=== PATIENT | female | born 1995 | race American Indian/Alaskan Native ===

== ENCOUNTER 2021-02-18 03:17 | Outpatient (CLI) | payer OTHER ==
[2021-02-18 03:34] VITALS: BP 126/64
[2021-02-18] MEDS ORDERED: LACTATED RINGERS 1,000 ML IV ONE (03:45)
[2021-02-18] MEDS ORDERED: LACTATED RINGERS 1,000 ML ONE (03:48)
[2021-02-18] MEDS ORDERED: TERBUTALINE 1 MG/1 ML INJ SUB-Q ONE ×2 (04:05→04:55)
== END 2021-02-18 05:50 | disposition home or self-care (01) ==
LOC: TRG 03:17 → APU 03:19 → TRG 05:50
PROVIDERS: ATTEND Obstetrics & Gynecology
DX: O62.9 Abnormality of forces of labor, unspecified (principal); Z3A.36 36 weeks gestation of pregnancy
CPT/HCPCS: 59025; 96372; J3105; J7120; 96360

== ENCOUNTER 2021-02-22 00:13 | Inpatient (IN) | payer OTHER ==
[2021-02-22] MEDS ORDERED: LACTATED RINGERS 1,000 ML IV ONE (00:29)
[2021-02-22] MEDS ORDERED: OXYTOCIN DRIP 30,000 MILLIUNITS/500 ML BAG IV ONE (01:46)
[2021-02-22] MEDS ORDERED: BICITRA ORAL LIQD 30ML ONE (01:46)
[2021-02-22] MEDS ORDERED: METOCLOPRAMIDE 10 MG/2 ML INJ ONE (01:46)
[2021-02-22] MEDS ORDERED: FAMOTIDINE 20 MG/2 ML INJ IV ONE ×2 (01:47→01:52)
[2021-02-22] MEDS ORDERED: BICITRA ORAL LIQD 30ML PO ONE (01:52)
[2021-02-22] MEDS ORDERED: METOCLOPRAMIDE 10 MG/2 ML INJ IV ONE (01:52)
--- NOTE | 2021-02-22 01:58 | Ultrasound Report ---
LIMITED OBSTETRICAL ULTRASOUND HISTORY: Evaluate DIANELYS. FINDINGS: DIANELYS is at the lower limits of normal measuring 7.7 cm. A single viable intrauterine has heart tones of 147 bpm. position is cephalic. IMPRESSION: Amniotic fluid index of 7.7 cm. Signer Name: Aramis Miranda MD Signed: 02/22/2021 1:54 AM Workstation Name: [id number]
[2021-02-22] MEDS ORDERED: OXYTOCIN DRIP 30 UNITS/500 ML BAG IV SCH ×2 (02:00→06:29)
[2021-02-22] MEDS ORDERED: LACTATED RINGERS 1,000 ML IV SCH (02:00)
[2021-02-22] MEDS ORDERED: ceFAZolin/Water 2 GM/20 ML 2 GM/20 ML SYRINGE IV NR (02:00)
--- NOTE | 2021-02-22 02:05 | History and Physical Report ---
<VINCE NARANJO Olegario - Last Filed: 02/22/21 02:01> History of Present Illness Date of examination: 02/22/21 Chief complaint: labor History of present illness: EDC by 2nd trimester u/s 03/02/2021 Past History : 2 Term Births: 1 Premature Births: 0 Living Children: 1 Para: 1 Mult. Births: 0 Prev : 1 Aborta: 0 Elect. Ab: 0 Spont. 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 of genital herpes: no Partner hx. of genital herpes: no Rash, Viral, or Febrile illness since last LMP? no Varicella/Chicken Pox Status: Immunized Genetic History Congenital Heart Defect: Mom: no Dad: no Martina Disease: Mom: no Dad: no Thalassemia Mom: no Dad: no Neural Tube Defect Mom: no Dad: no Down's Syndrome Mom: no Dad: no Estuardo-Sachs Mom: no Dad: no Sickle Cell Disease/Trait Mom: no Dad: no Hemophilia Mom: no Dad: no Muscular Dystrophy Mom: no Dad: no Cystic Fibrosis Mom: no Dad: no [place] Chorea Mom: no Dad: no Mental Retardation Mom: no Dad: no Fragile X Mom: no Dad: no Other Genetic/Chromosomal Disorder Mom: no Dad: no Child w/other defect Mom: no Dad: no Enviromental Exposures Xray Exposure: no Medication, drug, or alcohol use since LMP: no Chemical/Other Exposure: no Exposure to Cat Liter: no Hx of Parvovirus (Fifth Disease): no Occupational Exposure to Children: none Current Allergies (reviewed today): No known allergies Past History Past Medical History: other (fibroids) Past Surgical History: section (2016) 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: abnormal PAP smear (ASCUS + HRHPV) Social history: other (THC use) - Obstetrical History Expected Date of Delivery: 03/02/21 Actual Gestation: 38 Week(s) 6 Day(s) : 2 Para: 1 Hx # Term Pregnancies: 1 Number of Pregnancies: 0 Spontaneous Abortions: 0 Induced : 0 Number of Living Children: 1 Medications and Allergies Allergies Allergy/AdvReac Type Severity Reaction Status Date / Time No Known Allergies Allergy Unverified 02/18/21 03:45 Home Medications Medication Instructions Recorded Confirmed Last Taken Type No Known Home Medications [No 02/22/21 02/22/21 Unknown History Reported Home Medications] Active Meds: Active Medications Lactated Ringer's (Lactated Ringers) 1,000 mls @ 2,250 mls/hr IV PREOP KEMI Stop: 02/23/21 02:27 Oxytocin/Sodium Chloride (Pitocin/Ns 30 Unit/500ml) 30 units in 500 mls @ 0 mls/hr IV TITR KEMI; Protocol Cefazolin Sodium (Ancef/Sterile Water 2 Gm/20 Ml) 2 gm in 20 mls @ 80 mls/hr IV PREOP NR; Protocol Stop: 02/22/21 02:14 - Vital Signs Vital signs: Vital Signs Pulse BP 85 129/80 02/22/21 00:26 02/22/21 00:26 Temp Pulse Resp BP Pulse Ox 98.3 F 85 129/82 02/22/21 00:47 02/22/21 00:26 02/22/21 00:47 Results All other labs normal. Assessment and Plan - Patient Problems (1) 38 weeks gestation of Current Visit: Yes Status: Acute (2) Previous section Current Visit: Yes Status: Acute (3) Anemia Current Visit: Yes Status: Acute (4) Insufficient care Current Visit: Yes Status: Acute <GUZMAN VEGA - Last Filed: 02/22/21 02:48> History of Present Illness Date of admission: 02/22/21 00:29 Medications and Allergies Active Meds: Active Medications Lactated Ringer's (Lactated Ringers) 1,000 mls @ 2,250 mls/hr IV PREOP KEMI Stop: 02/23/21 02:27 Last Admin: 02/22/21 02:22 Dose: 2,250 mls/hr Documented by: Oxytocin/Sodium Chloride (Pitocin/Ns 30 Unit/500ml) 30 units in 500 mls @ 0 mls/hr IV TITR KEMI; Protocol Review of Systems All systems: negative Genitourinary: contractions - Vital Signs Vital signs: Vital Signs Pulse BP 85 129/80 02/22/21 00:26 02/22/21 00:26 Temp Pulse Resp BP Pulse Ox 98.3 F 85 129/82 02/22/21 00:47 02/22/21 00:26 02/22/21 00:47 - Physical Exam Breasts: Positive: deferred Cardiovascular: Regular rate Lungs: Positive: Normal air movement Uterus: Positive: enlarged - Obstetrical FHR: category 1 Uterine Contraction Monitor Mode: External Uterine Contraction Pattern: Irregular Results Result Diagrams: 02/22/21 01:50 Abnormal lab results 02/22/21 Range/Units 01:50 Hgb 8.7 L (10.1-14.3) gm/dl Hct 28.0 L (30.3-42.9) % MCV 71 L (79-97) fl MCH 22 L (28-32) pg RDW 18.5 H (13.2-15.2) % Real % (Auto) 8.8 H (0.0-7.3) % Real # (Auto) 0.9 H (0.0-0.8) K/mm3 Seg Neutrophils % 72.7 H (40.0-70.0) % All other labs normal. Assessment and Plan - Patient Problems (1) 38 weeks gestation of Current Visit: Yes Status: Acute (2) Anemia Current Visit: Yes Status: Chronic (3) Insufficient care Current Visit: Yes Status: Acute (4) Previous section Current Visit: Yes Status: Acute Plan to address problem: Risk associated with delivery were discussed, including but not limited to, bleeding that may require blood transfusion, infection that may be life threatening, injury to adjacent organs specifically bowel or bladder that may require further surgeries, or major vascular injury. She was also informed that when she has had a delivery she may require repeat deliveries for all subsequent pregnancies. Questions were encouraged and answered, consents were reviewed and signed. Patient voiced understanding and desires to proceed with delivery. Patient was given consent to review prior to my arrival but signed consent while being prepped for c/s because repeat c/s was discussed in our office earlier in her she desired repeat c/s. (5) Active labor at term Current Visit: Yes Status: Acute
[2021-02-22 02:25] LABS: Basophils % (Auto) 0.2 % (0.0-1.8); Eosinophils % (Auto) 0.2 % (0.0-4.3); Hemoglobin 8.7 gm/dl (10.1-14.3); Lymphocytes # (Auto) 1.9 K/mm3 (1.2-5.4); Lymphocytes % (Auto) 18.1 % (13.4-35.0); Mean Corpuscular HGB Conc 31 % (30-34); Mean Corpuscular Volume 71 fl (79-97); Monocytes # (Auto) 0.9 K/mm3 (0.0-0.8); Monocytes % (Auto) 8.8 % (0.0-7.3); Platelet Count 377 K/mm3 (140-440); Red Blood Count 3.93 M/mm3 (3.65-5.03); Red Cell Distribution Width 18.5 % (13.2-15.2)
--- NOTE | 2021-02-22 02:33 | Anesthesia Day of Surgery ---
Anesthesia Day of Surgery - Day of Surgery Patient Examined: Yes Patient H&P Reviewed: Yes Patient is NPO: No (6 hours)
--- NOTE | 2021-02-22 02:33 | Anesthesia Consultation ---
Anesthesia Consult and Med Hx Date of service: 02/22/21 - Airway Anesthetic Teeth Evaluation: Poor ROM Head & Neck: Adequate Mental/Hyoid Distance: Adequate Mallampati Class: Class II Intubation Access Assessment: Probably Good - Pulmonary Exam CTA: Yes - Cardiac Exam Cardiac Exam: RRR - Pre-Operative Health Status ASA Pre-Surgery Classification: ASA2, Emergency Proposed Anesthetic Plan: Spinal - Pulmonary Hx Asthma: No COPD: No Hx Pneumonia: No - Cardiovascular System Hx Hypertension: No - Central Nervous System Hx Seizures: No Hx Psychiatric Problems: No - Endocrine Hx Renal Disease: No Hx End Stage Renal Disease: No Hx Hypothyroidism: No Hx Hyperthyroidism: No - Hematic Hx Anemia: Yes (2015) Hx Sickle Cell Disease: No - Other Systems Hx Alcohol Use: No
[2021-02-22] MEDS ORDERED: CARBOPROST TROMETHAMINE 250 MCG/1 ML INJ IM PRN (02:50)
[2021-02-22] MEDS ORDERED: miSOPROStol 200 MCG TAB PR PRN (02:50)
[2021-02-22] MEDS ORDERED: METHYLERGONOVINE MALEATE 0.2 MG/ML VIAL IM PRN (02:50)
[2021-02-22] MEDS ORDERED: DIPHENOXYLATE/ATROPINE TAB PO PRN (02:52)
[2021-02-22] MEDS ORDERED: METHYLERGONOVINE MALEATE 0.2 MG/ML VIAL IM ONE (02:53)
[2021-02-22] MEDS ORDERED: miSOPROStol 200 MCG TAB ONE (02:53)
[2021-02-22] MEDS ORDERED: ceFAZolin 1 GM VIAL IV ONE (02:58)
[2021-02-22] MEDS ORDERED: SODIUM CHLORIDE 0.9% IRR 1,500 ML BOTTLE IR ONE (02:58)
[2021-02-22] MEDS ORDERED: WATER FOR IRRIG STERILE 1,500 ML BOTTLE IR ONE (02:58)
[2021-02-22] MEDS ORDERED: BUPIVACAINE/PF (0.5%) 5 MG/1 ML 30 ML VIAL INFILTRATI ONE (03:11)
[2021-02-22] MEDS ORDERED: KETOROLAC 30 MG/1 ML INJ ONE (03:11)
[2021-02-22] MEDS ORDERED: ONDANSETRON 4 MG/2 ML INJ ONE (03:11)
[2021-02-22] MEDS ORDERED: dexAMETHasone 20 MG/5 ML VIAL ONE (03:12)
--- NOTE | 2021-02-22 03:52 | Progress Note ---
Spinal Anesthesia Block - Spinal Anesthesia Block Start Time: 02:39 Stop Time: 02:41 Performed by:: NEYDA ROCK Procedure: Sitting, sterile chlorahexadine 0.5% prep/drape, 1% lidocaine skin local, 25G spinal needle + introducer at L3-4, + CSF, - Heme, [1.9 ml 0.5% bupivacaine + 10 mcg dexmedetomidine] injected, drape removed, patient positioned supine with left uterine displacement, and spinal level verified to be adequate prior to surgery.
--- NOTE | 2021-02-22 03:53 | Progress Note ---
Regional Anesthesia Block - Regional Anesthesia Block Start Time: 03:45 Stop Time: 03:50 Performed By:: NEYDA ROCK Procedure: U/S guided bilateral tap block performed for post-operative pain requested by Dr. Jones. H&P & labs reviewed. Procedure explained, questions answered, consent obtained. Patient in the supine position with ekg, blood pressure cuff and pulse ox on and working in PACU. Timeout performed immediately before start of procedure. Probe placed in the mid-axillary line and the external oblique, internal oblique, and transverse abdominus muscles identified. Skin was cleansed with chlorahexadine 0.5% and allowed to dry. A 4" 20 G Shin echogenic needle was advanced in plane until the tip was in the fascial plane between the internal oblique and the transverse abdominus. After negative aspiration 35 ml/side of [30 ml 0.5% Bupivacaine], [10 mg dexamethasone], and [40 ml sterile saline] was injected in 5 ml increments with negative aspiration in between. Patient tolerated procedure well.
--- NOTE | 2021-02-22 04:01 | Operative Report ---
Operative Report Operative Report: Date of operation: 02/22/2021 Pre-operative diagnosis: 1. 38 weeks gestational age 2. Active labor 3. Previous delivery desires repeat delivery 4. BMI 28.3 kg/m 5. Insufficient care 6. Uterine fibroids Post-operative diagnosis: 1. 38 weeks gestational age 2. Active labor 3. Previous delivery desires repeat delivery 4. BMI 28.3 kg/m 5. Insufficient care 6. Uterine fibroids 7. Thin lower uterine segment 8. Thick meconium stained amniotic fluid 9. Pelvic adhesions Procedure name(s): Primary low transverse uterine incision with lysis of pelvic adhesions Surgeon: Flower Jones MD Cloth Finishing Range Back Tender: Varsha Nagy Anesthesia: Combined spinal epidural EBL: 500 mL Urine output: 25 mL of clear urine out at the end of the procedure Fluids: 500 mL Findings: Liveborn female infant weight 5 Lbs. 13 oz. Apgars of 8 and 9 at one and 5 minutes Procedure: Patient was taking to the operating room. Combined spinal epidural anesthesia was placed. Patient was then prepped and draped in the usual sterile fashion Timeout was performed. Once an appropriate level of anesthesia was noted, a Pfannenstiel incision was made and extended the fascia which was incised and extended lateral direction. The overlying fascia was sharply dissected away from the underlying rectus muscles in the superior inferior direction. The midline was entered bluntly. Thin adhesion of the left anterior lower uterine segment was adhered to the anterior abdominal wall that was released. Bladder blade was placed. Vesicouterine fold was incised with blunt dissection bladder flap was created. A transverse incision was made in the lower uterine segment and extended superolateral direction with finger fractionation. Thick meconium stained fluid was noted. was delivered from the cephalic position, with spontaneous cry and excellent tone. Mouth and nose bulb suctioned. Cord was doubly clamped and cut infant was given to the resuscitation team present. Placenta was delivered. Due to uterine size the uterus could not be safely exteriorized. There is a fibroid palpated at the left fundus of the uterus, as well as right fundal posterior of the uterus. The uterus was cleaned of any further placental tissue and products of conception. Uterine incision was approximated using 0 Vicryl in a running interlocking stitch followed by further suture of 0 Vicryl in imbricating fashion. Pelvis was irrigated with warm normal saline. Once hemostasis was noted the rectus muscles were approximated using 3-0 Vicryl interrupted simple stitches 3. Once hemostasis was noted the fascia was approximated using 0 Vicryl simple running stitch. The incision was irrigated with warm saline, once hemostasis was noted the skin was approximated using 4-0 Vicryl on a Rex needle in a subcuticular manner. Counts were correct x3. Patient was informed of the thin lower uterine segment and the recommendation to consider no further pregnancies due to high risk for uterine rupture. Patient tolerated the procedure well, she was taken to recovery room in stable condition.
[2021-02-22 05:01] LABS: Amphetamine Screen,Urine PRESUMPTIVE NEGATIVE; Benzodiazepines Screen,Urine PRESUMPTIVE NEGATIVE; Cannabinoid Screen,Urine PRESUMPTIVE POSITIVE; Cocaine Screen,Urine PRESUMPTIVE NEGATIVE; Methadone Screen,Urine PRESUMPTIVE NEGATIVE; Opiate Screen,Urine PRESUMPTIVE NEGATIVE
[2021-02-22] MEDS ORDERED: NALOXONE 0.4 MG/1 ML INJ IV PRN (06:29)
[2021-02-22] MEDS ORDERED: MORPHINE 2 MG/1 ML INJ IV PRN (06:29)
[2021-02-22] MEDS ORDERED: PROMETHAZINE 25 MG RECT SUPP PR PRN (06:29)
[2021-02-22] MEDS ORDERED: traMADol 50 MG TAB PO PRN (06:29)
[2021-02-22] MEDS ORDERED: LANOLIN/ZINC/DIMETHICONE (LANSINOH) 7 GM TP PRN (06:29)
[2021-02-22] MEDS ORDERED: WITCH HAZEL/ GLYCERIN PAD TP PRN (06:29)
[2021-02-22] MEDS ORDERED: D5W/LACTATED RINGERS 1,000 ML IV SCH (06:29)
[2021-02-22] MEDS ORDERED: ONDANSETRON 4 MG/2 ML INJ IV PRN (06:29)
[2021-02-22] MEDS ORDERED: ACETAMINOPHEN 500 MG TAB PO SCH (06:30)
--- NOTE | 2021-02-22 07:00 | Event Note ---
Date: 02/22/21 (Pt very upset @ Similac being the only formula available) Nurses are working with pt to help her understand low BS in the NB and the need to feed. Pt is adamant to not give NB Similac. NICU FARM SERVICE CONSULTANT has been notified. No surgery c/o voiced @ time of rounds
[2021-02-22] MEDS: MORPHINE 4 MG/1 ML INJ IV PRN ×3 (07:45→18:40)
[2021-02-22] MEDS: FERROUS SULFATE 325 MG TAB PO SCH ×3 (07:45→21:00)
[2021-02-22] MEDS: ceFAZolin/NS 1 GM/50 ML 1 GM/50 ML BAG IV SCH ×2 (10:16→18:40)
[2021-02-22] MEDS: KETOROLAC 30 MG/1 ML INJ IV SCH ×3 (10:16→22:37)
[2021-02-22 16:46] LABS: Hematocrit 23.9 % (30.3-42.9); Hemoglobin 7.3 gm/dl (10.1-14.3)
[2021-02-23] MEDS: KETOROLAC 30 MG/1 ML INJ IV SCH (04:09)
[2021-02-23] MEDS ORDERED: TETANUS,DIPH,PERTUSS(ACELL) VACCINE 0.5 ML SYRINGE IM ONE (06:00)
[2021-02-23] MEDS: FERROUS SULFATE 325 MG TAB PO SCH ×3 (07:57→20:47)
[2021-02-23] MEDS: oxyCODONE /ACETAMINOPHEN 5-325MG TAB PO PRN ×3 (07:57→20:43)
--- NOTE | 2021-02-23 08:40 | Progress Note ---
Assessment and Plan patient doing well, breast feeding without concern. Pt talking on phone to family during assessment. Incision D&I. postop H&H 7.3/23.9, existing anemia with drop after surgery, asymptomatic. Patient currently taking fe supplementation. VSSAF. Anticipate d/c home tomorrow. - Patient Problems (1) 38 weeks gestation of Current Visit: Yes Status: Acute (2) Previous section Current Visit: Yes Status: Acute (3) Anemia Current Visit: Yes Status: Chronic (4) Insufficient care Current Visit: Yes Status: Acute Qualifiers: Trimester: unspecified trimester Qualified Code(s): O09.30 - Supervision of with insufficient care, unspecified trimester Plan to address problem: Social service consult complete. (5) Mood and affect disturbance Current Visit: Yes Status: Acute Plan to address problem: mental joshua consult ordered. Subjective - Subjective Date of service: 02/23/21 Principal diagnosis: postop day #1 s/p repeat c/s Interval history: EDC by 2nd trimester u/s 03/02/2021 Past History : 2 Term Births: 1 Premature Births: 0 Living Children: 1 Para: 1 Mult. Births: 0 Prev : 1 Aborta: 0 Elect. Ab: 0 Spont. 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 of genital herpes: no Partner hx. of genital herpes: no Rash, Viral, or Febrile illness since last LMP? no Varicella/Chicken Pox Status: Immunized Genetic History Congenital Heart Defect: Mom: no Dad: no Martina Disease: Mom: no Dad: no Thalassemia Mom: no Dad: no Neural Tube Defect Mom: no Dad: no Down's Syndrome Mom: no Dad: no Estuardo-Sachs Mom: no Dad: no Sickle Cell Disease/Trait Mom: no Dad: no Hemophilia Mom: no Dad: no Muscular Dystrophy Mom: no Dad: no Cystic Fibrosis Mom: no Dad: no [place] Chorea Mom: no Dad: no Mental Retardation Mom: no Dad: no Fragile X Mom: no Dad: no Other Genetic/Chromosomal Disorder Mom: no Dad: no Child w/other defect Mom: no Dad: no Enviromental Exposures Xray Exposure: no Medication, drug, or alcohol use since LMP: no Chemical/Other Exposure: no Exposure to Cat Liter: no Hx of Parvovirus (Fifth Disease): no Occupational Exposure to Children: none Current Allergies (reviewed today): No known allergies Patient reports: appetite normal, voiding normally, pain well controlled, ambulating normally, no dizzy ambulation, no nauseated [place]: doing well, nursing well Objective - Vital Signs Latest vital signs: Vital Signs Temp Pulse Resp BP Pulse Ox 02/23/21 08:02 98.8 F 80 16 128/65 100 02/23/21 07:57 16 02/23/21 00:00 98.2 F 80 18 124/78 97 02/22/21 21:15 97.4 F L 75 18 117/76 99 02/22/21 18:40 18 02/22/21 15:30 18 02/22/21 14:00 18 02/22/21 12:30 97.9 F 88 18 121/81 100 02/22/21 10:16 18 Intake and Output 02/22/21 02/23/21 02/23/21 23:59 07:59 15:59 Intake Total 290 480 Output Total 600 1200 Balance -310 -720 Intake: IV 50 ANCEF/NS 1 GM/50 ML 1 gm 50 In 50 ml @ 100 mls/hr IV Q8H [facility] Rx#:[id number] Oral 240 480 Output: Urine 600 1200 Void 600 1200 Other: Total, Intake Amount 240 240 Total, Output Amount 600 600 - Exam Breasts: Present: normal, Cardiovascular: Present: Regular rate Lungs: Present: Normal air movement Abdomen: Present: normal appearance, soft Vulva: both: normal Uterus: Present: normal, firm, fundal height below umbilicus Extremities: Present: normal Deep Tendon Reflex Grade: Normal +2 Incision: Present: normal, dry, intact - Labs Labs: Abnormal lab results 02/22/21 Range/Units 15:57 Hgb 7.3 L (10.1-14.3) gm/dl Hct 23.9 L (30.3-42.9) %
--- NOTE | 2021-02-23 15:12 | Post Anesthesia Evaluation ---
- Post Anesthesia Evaluation Patient Participated: Yes Airway Patent: Yes Stable Respiratory Function: Yes Nausea/Vomiting: No Temp > 96.8F: Yes Pain Manageable: Yes Adequeate Hydration: Yes Anesthesia Complications: No Block Receding Appropriately: Yes
[2021-02-24] MEDS: oxyCODONE /ACETAMINOPHEN 5-325MG TAB PO PRN ×3 (03:32→16:34)
[2021-02-24] MEDS: FERROUS SULFATE 325 MG TAB PO SCH ×3 (09:11→21:00)
--- NOTE | 2021-02-24 09:24 | Discharge Summary ---
Providers - Providers Date of Admission: 02/22/21 00:29 Date of discharge: 02/24/21 (Pt in good condition to be discharged home) Attending physician: GUZMAN VEGA 02/22/21 06:29 Consult to Tank Shop Supervisor [CONS] Routine Reason For Exam: 02/23/21 08:34 Consult to Mental Health [CONS] Routine Reason For Exam: Mood instabilty, excessive anger Primary care physician: GUZMAN VEGA Hospitalization Reason for admission: active labor Delivery: Procedure: primary low transverse Episiotomy: none Laceration: none Incision: normal, dry, intact Other procedures: none complications: none Discharge diagnosis: IUP at term delivered [place] baby: female Pertinent studies: Pt very tearful this AM d/t not being able to contact her boyfriend. Has no thoughts of harming herself, her baby, or anyone else. Psych to see before discharge. Hospital course: S: Pt doing well. Tearful this AM. Ambulating, voiding, and passing flatus without difficulty. BC: Undecided. O: VSS. Fundus firm, minimal bleeding noted. Incision open to air, intact, no drainage or s/sx of infection noted. H/H 7.3/23.9, asymptomatic anemia from delivery. A: 25 y.o. s/p primary d/t failure to progress. In good condition and can be discharged home. P: Discharge home with instructions. Pt to schedule an incision check in the office in 1 week. Condition at discharge: Good Disposition: DC-01 TO HOME OR SELFCARE Plan - Discharge Medications Prescriptions: Docusate Sodium [Colace] 100 mg PO DAILY PRN #30 capsule PRN Reason: Constipation Ferrous Sulfate [Feosol 325 MG tab] 325 mg PO BID #90 tablet Ibuprofen [Motrin 800 MG tab] 800 mg PO TID PRN #30 tablet PRN Reason: Pain oxyCODONE /ACETAMINOPHEN [Percocet 5/325 mg] 1 - 2 tab PO Q6HR PRN #14 tablet PRN Reason: Pain - Provider Discharge Summary Activity: routine, no sex for 6 weeks, no heavy lifting 4 weeks, no strenuous exercise Diet: routine Instructions: routine Additional instructions: [] Smoking cessation referral if applicable(refer to patient education folder for contact #) [] Refer to [facility] Booklet Call your doctor immediately for: * Fever > 100.5 * Heavy vaginal bleeding ( >1 pad per hour) * Severe persistent headache * Shortness of breath * Reddened, hot, painful area to leg or breast * Drainage or odor from incision. * Keep incision clean and dry at all times and follow doctor's instructions regarding bathing/showering Congratulations on your baby girl!! Please schedule an incision check in the office in 1 week. If you have any questions or concerns after discharge, please do not hesitate to call the office at [phone]. - Follow up plan Follow up: GUZMAN VEGA MD [Primary Care Provider] - 7 Days
[2021-02-24] MEDS ORDERED: DOCUSATE SODIUM 100 MG CAP PO SCH (11:00)
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
--- NOTE | 2021-02-24 12:34 | Event Note ---
Date: 02/24/21 (Pt feeling better) Upon assessment this AM, pt states that she was sad because she could not get intact with her boyfriend. She was very tearful and cried during assessment. She was seen by psych and now patient states that she feels much better. Per psych she is clear for discharge and can be followed as an outpatient. Will follow up with patient once she is at home. Discharge order has been written for pt to be discharged home.
[2021-02-24] MEDS: IBUPROFEN 800 MG TAB PO PRN ×2 (14:21→21:01)
[2021-02-24 20:24] VITALS: BP 122/83
== END 2021-02-24 21:00 | disposition home or self-care (01) | DRG 765 ==
LOC: TRG 00:13 → APU 00:29 → TRG 00:29 → APU 01:08 → OB 05:52
PROVIDERS: ADMIT Obstetrics & Gynecology; ATTEND Obstetrics & Gynecology
PROC: 10D00Z1 Extraction of Products of Conception, Low, Open Approach (ICD-10-PCS; principal; 2021-02-22)
PROC: 3E0R3BZ Introduction of Anesthetic Agent into Spinal Canal, Percutaneous Approach (ICD-10-PCS; 2021-02-22)
DX: O34.211 Maternal care for low transverse scar from previous cesarean delivery (principal); D62 Acute posthemorrhagic anemia; O99.02 Anemia complicating childbirth; Z3A.38 38 weeks gestation of pregnancy; D64.9 Anemia, unspecified; Z37.0 Single live birth; Z20.822 Contact with and (suspected) exposure to COVID-19; O77.0 Labor and delivery complicated by meconium in amniotic fluid
CPT/HCPCS: 36415; 59025; 76815; 80307; 84112; 85014; 85018; 85025; 86592; 86850; 86900; 86901; 88307; 96360; 96372; 99211; G0378; A6250; G0463; J0690; J1100; J1885; J2270; J2405; J2765; J3105; J3490; J7120; U0003